=== PATIENT | female | born 1950 | race Caucasian/White ===

== ENCOUNTER 2016-11-18 05:54 | Emergency (ER) | payer BC ==
--- NOTE | 2016-11-18 06:54 | Emergency Department Record ---
History of Present Illness - General Chief complaint: Female Urogenital Problem Stated complaint: BALLARD PROBLEMS Time Seen by Provider: 11/18/16 06:48 Source: Patient Mode of Arrival: Ambulatory Limitations: No limitations - History of Present Illness Initial comments: pt had nephrostomy tube placed yesterday by dr buitrago. pt is here now because she is unclear how to take care of it. MD Complaint: Other Radiation: L flank Associated Symptoms: Denies other symptoms - Related Data Allergies Allergy/AdvReac Type Severity Reaction Status Date / Time cefaclor [From Ceclor] Allergy HIVES Verified 10/22/14 08:28 penicillin V Allergy HIVES Verified 10/22/14 08:28 sulfamethoxazole Allergy PT UNSURE Verified 10/22/14 08:28 [From Bactrim] OF REACTION trimethoprim [From Bactrim] Allergy PT UNSURE Verified 10/22/14 08:28 OF REACTION aspirin AdvReac PT UNSURE Verified 10/22/14 08:28 OF REACTION codeine AdvReac VOMITING Verified 02/21/15 14:17 doxycycline AdvReac VOMITING Verified 02/21/15 14:17 tioconazole AdvReac ITCHING Verified 02/21/15 14:17 [From Monistat 1 (tioconazole)] Travel Screening - Travel/Exposure Within Last 30 Days Have you traveled within the last 30 days?: No - Travel/Exposure Within Last Year Have you traveled outside the [place] in the last year?: No Review of Systems Reviewed: No additional complaints except as noted below Constitutional: Reports: As per HPI. Denies: Chills, Fever, Malaise, Night sweats, Weakness, Weight change Eyes: Reports: As per HPI. Denies: Eye discharge, Eye pain, Photophobia, Vision change ENT: Reports: As per HPI. Denies: Congestion, Dental pain, Ear pain, Epistaxis , Hearing loss, Throat pain Respiratory: Reports: As per HPI. Denies: Cough, Dyspnea, Hemoptysis, Stridor, Wheezes Cardiovascular: Reports: As per HPI. Denies: Arrhythmia, Chest pain, Dyspnea on exertion, Edema, Murmurs, Orthopnea, Palpitations, Paroxysmal nocturnal dyspnea, Rheumatic Fever, Syncope Endocrine: Reports: As per HPI. Denies: Fatigue, Heat or cold intolerance, Polydipsia, Polyuria Gastrointestinal: Reports: As per HPI. Denies: Abdominal pain, Constipation, Diarrhea, Hematemesis, Hematochezia, Melena, Nausea, Vomiting Genitourinary: Reports: As per HPI. Denies: Abnormal menses, Discharge, Dyspareunia, Dysuria, Frequency, Hematuria, Incontinence, Retention, Urgency Musculoskeletal: Reports: As per HPI. Denies: Arthralgia, Back pain, Gout, Joint swelling, Myalgia, Neck pain Skin: Reports: As per HPI. Denies: Bruising, Change in color, Change in hair/ nails, Lesions, Pruritus, Rash Neurological: Reports: As per HPI. Denies: Abnormal gait, Confusion, Headache, Numbness, Paresthesias, Seizure, Tingling, Tremors, Vertigo, Weakness Psychiatric: Reports: As per HPI. Denies: Anxiety, Auditory hallucinations, Depression, Homicidal thoughts, Suicidal thoughts, Visual hallucinations Hematological/Lymphatic: Reports: As per HPI. Denies: Anemia, Blood Clots, Easy bleeding, Easy bruising, Swollen glands Past Medical History - SOCIAL HISTORY Smoking Status: Never smoker Alcohol Use: None Drug Use: None - RESPIRATORY Hx Respiratory Disorders: Yes Hx Bronchitis: Yes - CARDIOVASCULAR Hx Cardio Disorders: No - NEURO Hx Neuro Disorders: No - GI Hx GI Disorders: No - Hx Genitourinary Disorders: Yes Hx Kidney Stones: Yes Hx Renal Disease: Yes - ENDOCRINE Hx Endocrine Disorders: Yes Hx Diabetes: Yes ("Pre-diabetic") - MUSCULOSKELETAL Hx Musculoskeletal Disorders: No - PSYCH Hx Psych Problems: No - HEMATOLOGY/ONCOLOGY Hx Hematology/Oncology Disorders: No Family Medical History Any Significant Family History?: Yes Family Hx Comment (NOT TO BE USED IN PLACE OF ITEMS BELOW): Mother had MS and was "post-polio" Hx Cancer: Father, Mother Physical Exam - General General Appearance: Alert, Oriented x3, Cooperative, No acute distress - Head Head exam: Normal inspection - Eye Eye exam: Normal appearance, PERRL, EOMI Pupils: Normal accommodation - ENT ENT exam: Normal exam, Mucous membranes moist, Normal external ear exam, Normal orophraynx Ear exam: Normal external inspection. negative: External canal tenderness Nasal Exam: Normal inspection. negative: Discharge, Sinus tenderness Mouth exam: Normal external inspection, Tongue normal Teeth exam: Normal inspection. negative: Dental caries Throat exam: Normal inspection. negative: Tonsillar erythema, Tonsillar exudate - Neck Neck exam: Normal inspection, Full ROM. negative: Tenderness - Respiratory Respiratory exam: Normal lung sounds bilaterally. negative: Respiratory distress - Cardiovascular Cardiovascular Exam: Regular rate, Normal rhythm, Normal heart sounds - GI/Abdominal GI/Abdominal exam: Soft, Normal bowel sounds. negative: Tenderness - Rectal Rectal exam: Deferred - exam: Deferred - Extremities Extremities exam: Normal inspection, Full ROM, Normal capillary refill. negative: Tenderness - Back Back exam: Reports: Normal inspection, Full ROM, Other (nephrostomy tube in place). Denies: Muscle spasm, Rash noted, Tenderness - Neurological Neurological exam: Alert, CN II-XII intact, Normal gait, Oriented X3 - Psychiatric Psychiatric exam: Normal affect, Normal mood - Skin Skin exam: Dry, Intact, Normal color, Warm Course Vital Signs 11/18/16 11/18/16 06:04 06:45 Temperature 97.4 F L 98.1 F Pulse Rate [ 78 80 Pulse Ox Probe] Respiratory 18 18 Rate Blood Pressure 161/87 138/76 [Right Arm] Pulse Ox 96 97 - Reevaluation(s) Reevaluation #1: 11/18/16 06:51 pt and educated re nephrostomy tube Disposition Disposition: Discharge Clinical Impression: Nephrostomy complication Disposition: Home, Self-Care Condition: (1) Good Instructions: Nephrostomy Tube Care (ED) Additional Instructions: follow up with dr buitrago. return sooner if worse Forms: Patient Portal Access
== END 2016-11-18 07:01 | disposition home or self-care (01) ==
LOC: ER 05:54
DX: N99.528 Other complication of incontinent external stoma of urinary tract (principal); Z87.442 Personal history of urinary calculi; Z98.890 Other specified postprocedural states
CPT/HCPCS: 99282

== ENCOUNTER 2017-11-27 12:41 | Emergency (ER) | payer BC ==
[2017-11-27] MEDS ORDERED: 0.9 % SODIUM CHLORIDE 1,000 ML BAG IV ONE (13:09)
[2017-11-27] MEDS ORDERED: KETOROLAC 30 MG/ML VIAL IVP ONE (13:10)
[2017-11-27 13:13] LABS: URINE APPEARANCE CLEAR; URINE BILIRUBIN NEGATIVE (NEGATIVE); URINE BLOOD LARGE (NEGATIVE); URINE COLOR YELLOW; URINE GLUCOSE (UA) NEGATIVE (NEGATIVE); URINE KETONE NEGATIVE (NEGATIVE); URINE LEUKOCYTE ESTERASE LARGE (NEGATIVE); URINE NITRITE NEGATIVE (NEGATIVE); URINE UROBILINOGEN 0.2 E.U./dL (0.20 - 1.00)
[2017-11-27 13:35] LABS: URINE BACTERIA FEW; URINE RBC >50 (NONE SEEN); URINE WBC >50 (0-2/hpf)
--- NOTE | 2017-11-27 13:40 | Emergency Department Record ---
History of Present Illness - General Chief complaint: Flank Pain Stated complaint: KIDNEY STONE Time Seen by Provider: 11/27/17 13:03 Source: Patient Mode of Arrival: Ambulatory Limitations: No limitations - History of Present Illness Initial comments: pt is having l flank pain and has a hx of stones. Complaint: Other (l flank pain) Onset/Timin -: Week(s) Severity scale (1-10): 4 Quality: Aching, Cramping Improves with: None Worsens with: None Patient : No - Related Data Home Medications Medication Instructions Recorded Confirmed Last Taken Cholecalciferol (Vitamin D3) 2,000 unit PO DAILY 11/27/17 11/27/17 11/27/17 [Vitamin D3] Sertraline HCl [Zoloft] 50 mg PO DAILY 11/27/17 11/27/17 11/27/17 Previous Rx's Medication Instructions Recorded Ciprofloxacin HCl [Cipro] 500 mg PO Q12HR #14 tablet 11/27/17 Allergies Allergy/AdvReac Type Severity Reaction Status Date / Time cefaclor [From Ceclor] Allergy HIVES Verified 11/27/17 12:53 penicillin V Allergy HIVES Verified 11/27/17 12:53 sulfamethoxazole Allergy PT UNSURE Verified 11/27/17 12:53 [From Bactrim] OF REACTION trimethoprim [From Bactrim] Allergy PT UNSURE Verified 11/27/17 12:53 OF REACTION aspirin AdvReac PT UNSURE Verified 11/27/17 12:53 OF REACTION codeine AdvReac VOMITING Verified 11/27/17 12:53 doxycycline AdvReac VOMITING Verified 11/27/17 12:53 tioconazole AdvReac ITCHING Verified 11/27/17 12:53 [From Monistat 1 (tioconazole)] Travel Screening - Travel/Exposure Within Last 30 Days Have you traveled within the last 30 days?: No - Travel/Exposure Within Last Year Have you traveled outside the [place] in the last year?: No - Additonal Travel Details Have you been exposed to anyone with a communicable illness?: No Review of Systems Reviewed: No additional complaints except as noted below Constitutional: Reports: As per HPI. Denies: Chills, Fever, Malaise, Night sweats, Weakness, Weight change Eyes: Reports: As per HPI. Denies: Eye discharge, Eye pain, Photophobia, Vision change ENT: Reports: As per HPI. Denies: Congestion, Dental pain, Ear pain, Epistaxis , Hearing loss, Throat pain Respiratory: Reports: As per HPI. Denies: Cough, Dyspnea, Hemoptysis, Stridor, Wheezes Cardiovascular: Reports: As per HPI. Denies: Arrhythmia, Chest pain, Dyspnea on exertion, Edema, Murmurs, Orthopnea, Palpitations, Paroxysmal nocturnal dyspnea, Rheumatic Fever, Syncope Endocrine: Reports: As per HPI. Denies: Fatigue, Heat or cold intolerance, Polydipsia, Polyuria Gastrointestinal: Reports: As per HPI. Denies: Abdominal pain, Constipation, Diarrhea, Hematemesis, Hematochezia, Melena, Nausea, Vomiting Genitourinary: Reports: As per HPI. Denies: Abnormal menses, Discharge, Dyspareunia, Dysuria, Frequency, Hematuria, Incontinence, Retention, Urgency Musculoskeletal: Reports: As per HPI, Back pain. Denies: Arthralgia, Gout, Joint swelling, Myalgia, Neck pain Skin: Reports: As per HPI. Denies: Bruising, Change in color, Change in hair/ nails, Lesions, Pruritus, Rash Neurological: Reports: As per HPI. Denies: Abnormal gait, Confusion, Headache, Numbness, Paresthesias, Seizure, Tingling, Tremors, Vertigo, Weakness Psychiatric: Reports: As per HPI. Denies: Anxiety, Auditory hallucinations, Depression, Homicidal thoughts, Suicidal thoughts, Visual hallucinations Hematological/Lymphatic: Reports: As per HPI. Denies: Anemia, Blood Clots, Easy bleeding, Easy bruising, Swollen glands Past Medical History - SOCIAL HISTORY Smoking Status: Never smoker Alcohol Use: None Drug Use: None - RESPIRATORY Hx Respiratory Disorders: Yes Hx Bronchitis: Yes - CARDIOVASCULAR Hx Cardio Disorders: No - NEURO Hx Neuro Disorders: No - GI Hx GI Disorders: No - Hx Genitourinary Disorders: Yes Hx Kidney Stones: Yes Hx Renal Disease: Yes - ENDOCRINE Hx Endocrine Disorders: Yes Hx Diabetes: Yes ("Pre-diabetic") - MUSCULOSKELETAL Hx Musculoskeletal Disorders: No - PSYCH Hx Psych Problems: No - HEMATOLOGY/ONCOLOGY Hx Hematology/Oncology Disorders: No Family Medical History Any Significant Family History?: No Family Hx Comment (NOT TO BE USED IN PLACE OF ITEMS BELOW): Mother had MS and was "post-polio" Hx Cancer: Father, Mother Physical Exam - General General Appearance: Alert, Oriented x3, Cooperative, Mild distress - Head Head exam: Normal inspection - Eye Eye exam: Normal appearance, PERRL, EOMI Pupils: Normal accommodation - ENT ENT exam: Normal exam, Mucous membranes moist, Normal external ear exam, Normal orophraynx Ear exam: Normal external inspection. negative: External canal tenderness Nasal Exam: Normal inspection. negative: Discharge, Sinus tenderness Mouth exam: Normal external inspection, Tongue normal Teeth exam: Normal inspection. negative: Dental caries Throat exam: Normal inspection. negative: Tonsillar erythema, Tonsillar exudate - Neck Neck exam: Normal inspection, Full ROM. negative: Tenderness - Respiratory Respiratory exam: Normal lung sounds bilaterally. negative: Respiratory distress - Cardiovascular Cardiovascular Exam: Regular rate, Normal rhythm, Normal heart sounds - GI/Abdominal GI/Abdominal exam: Soft, Normal bowel sounds. negative: Tenderness - Rectal Rectal exam: Deferred - exam: Deferred - Extremities Extremities exam: Normal inspection, Full ROM, Normal capillary refill. negative: Tenderness - Back Back exam: Reports: Normal inspection, Full ROM. Denies: Muscle spasm, Rash noted, Tenderness - Neurological Neurological exam: Alert, CN II-XII intact, Normal gait, Oriented X3 - Psychiatric Psychiatric exam: Normal affect, Normal mood - Skin Skin exam: Dry, Intact, Normal color, Warm Course Vital Signs 11/27/17 12:46 Temperature 97.9 F Pulse Rate 83 Respiratory 20 Rate Blood Pressure 162/69 Pulse Ox 97 Medical Decision Making - Lab Data Result diagrams: 11/27/17 13:45 11/27/17 13:45 Lab Results 11/27/17 Range/Units 13:07 Urine Color Yellow Urine Appearance Clear Urine pH 6.0 (5.0-8.0) Ur Specific [place] 1.020 (1.002-1.030) Urine Protein 30 mg/dl H (NEGATIVE) Urine Glucose (UA) Negative (NEGATIVE) Urine Ketones Negative (NEGATIVE) Urine Blood Large H (NEGATIVE) Urine Nitrite Negative (NEGATIVE) Urine Bilirubin Negative (NEGATIVE) Urine Urobilinogen 0.2 (0.20 - 1.00) E.U./dL Ur Leukocyte Esterase Large H (NEGATIVE) Urine RBC >50 (NONE SEEN) Urine WBC >50 (0-2/hpf) Ur Epithelial Cells 3 - 6 (FEW) Urine Bacteria Few Disposition Disposition: Discharge Clinical Impression: Pyelonephritis, Lymphadenopathy Disposition: Home, Self-Care Condition: (1) Good Instructions: Flank Pain (ED), Kidney Infection (ED) Additional Instructions: follow up with family doctor. return sooner if worse. push fluids Prescriptions: Ciprofloxacin HCl [Cipro] 500 mg PO Q12HR #14 tablet Forms: Patient Portal Access Quality - Quality Measures Quality Measures: N/A - Blood Pressure Screening Does Patient Have Any of the Following: No Blood Pressure Classification: Hypertensive Reading Systolic Measurement: 162 Diastolic Measurement: 69 Screening for High Blood Pressure: < First Hypertensive BP, F/U Documented > [ G8950] First Hypertensive Follow-up Interventions: Follow-up with rescreen GT 1 day and LT 4 weeks.
[2017-11-27 13:56] LABS: BASO % 0.7 % (0-6); EOS % 1.9 % (0-6); GRAN % 73.9 % (47-80); HEMATOCRIT 38.6 % (35.0-47.0); HEMOGLOBIN 12.3 gm/dl (11.6-16.0); LYMPH % 15.2 % (16-45); MEAN CELL VOLUME 95.3 fl (81-97); MEAN CORPUSCULAR HEMOGLOBIN 30.4 pg (27-33); MEAN CORPUSCULAR HGB CONC 31.9 g/dl (32-36); MEAN PLATELET VOLUME 10.1 fl (7.4-10.4); MONO % 8.3 % (0-9); PLATELET COUNT 226 K/uL (130-400); RED BLOOD COUNT 4.05 M/uL (3.80-5.40); RED CELL DISTRIBUTION WIDTH 12.6 % (11.5-14.5); WHITE BLOOD COUNT W/O DIFF 5.9 K/uL (4.2-12.2)
[2017-11-27 14:15] LABS: BLOOD UREA NITROGEN 14 mg/dL (8-23); CREATININE 0.8 mg/dL (0.5-0.9); EST GLOMERULAR FILTRATION RATE > 60 mL/min; GLUCOSE,RANDOM 105 mg/dL (74-109)
[2017-11-27] MEDS ORDERED: CIPROFLOXACIN HCL 500 MG TABLET PO ONE (16:12)
--- NOTE | 2017-11-27 16:26 | Emergency Department Record ---
History of Present Illness - General Chief complaint: Flank Pain Stated complaint: KIDNEY STONE Time Seen by Provider: 11/27/17 13:03 Source: Patient Mode of Arrival: Ambulatory Limitations: No limitations - History of Present Illness Onset/Timin -: Week(s) Severity scale (1-10): 4 Quality: Aching, Cramping Improves with: None Worsens with: None Patient : No - Related Data Home Medications Medication Instructions Recorded Confirmed Last Taken Cholecalciferol (Vitamin D3) 2,000 unit PO DAILY 11/27/17 11/27/17 11/27/17 [Vitamin D3] Sertraline HCl [Zoloft] 50 mg PO DAILY 11/27/17 11/27/17 11/27/17 Previous Rx's Medication Instructions Recorded Ciprofloxacin HCl [Cipro] 500 mg PO Q12HR #14 tablet 11/27/17 Allergies Allergy/AdvReac Type Severity Reaction Status Date / Time cefaclor [From Ceclor] Allergy HIVES Verified 11/27/17 12:53 penicillin V Allergy HIVES Verified 11/27/17 12:53 sulfamethoxazole Allergy PT UNSURE Verified 11/27/17 12:53 [From Bactrim] OF REACTION trimethoprim [From Bactrim] Allergy PT UNSURE Verified 11/27/17 12:53 OF REACTION aspirin AdvReac PT UNSURE Verified 11/27/17 12:53 OF REACTION codeine AdvReac VOMITING Verified 11/27/17 12:53 doxycycline AdvReac VOMITING Verified 11/27/17 12:53 tioconazole AdvReac ITCHING Verified 11/27/17 12:53 [From Monistat 1 (tioconazole)] Travel Screening - Travel/Exposure Within Last 30 Days Have you traveled within the last 30 days?: No - Travel/Exposure Within Last Year Have you traveled outside the [place] in the last year?: No - Additonal Travel Details Have you been exposed to anyone with a communicable illness?: No Review of Systems Constitutional: Reports: As per HPI. Denies: Chills, Fever, Malaise, Night sweats, Weakness, Weight change Eyes: Reports: As per HPI. Denies: Eye discharge, Eye pain, Photophobia, Vision change ENT: Reports: As per HPI. Denies: Congestion, Dental pain, Ear pain, Epistaxis , Hearing loss, Throat pain Respiratory: Reports: As per HPI. Denies: Cough, Dyspnea, Hemoptysis, Stridor, Wheezes Cardiovascular: Reports: As per HPI. Denies: Arrhythmia, Chest pain, Dyspnea on exertion, Edema, Murmurs, Orthopnea, Palpitations, Paroxysmal nocturnal dyspnea, Rheumatic Fever, Syncope Endocrine: Reports: As per HPI. Denies: Fatigue, Heat or cold intolerance, Polydipsia, Polyuria Gastrointestinal: Reports: As per HPI. Denies: Abdominal pain, Constipation, Diarrhea, Hematemesis, Hematochezia, Melena, Nausea, Vomiting Genitourinary: Reports: As per HPI. Denies: Abnormal menses, Discharge, Dyspareunia, Dysuria, Frequency, Hematuria, Incontinence, Retention, Urgency Musculoskeletal: Reports: As per HPI, Back pain. Denies: Arthralgia, Gout, Joint swelling, Myalgia, Neck pain Skin: Reports: As per HPI. Denies: Bruising, Change in color, Change in hair/ nails, Lesions, Pruritus, Rash Neurological: Reports: As per HPI. Denies: Abnormal gait, Confusion, Headache, Numbness, Paresthesias, Seizure, Tingling, Tremors, Vertigo, Weakness Psychiatric: Reports: As per HPI. Denies: Anxiety, Auditory hallucinations, Depression, Homicidal thoughts, Suicidal thoughts, Visual hallucinations Hematological/Lymphatic: Reports: As per HPI. Denies: Anemia, Blood Clots, Easy bleeding, Easy bruising, Swollen glands Past Medical History - SOCIAL HISTORY Smoking Status: Never smoker Alcohol Use: None Drug Use: None - RESPIRATORY Hx Respiratory Disorders: Yes Hx Bronchitis: Yes - CARDIOVASCULAR Hx Cardio Disorders: No - NEURO Hx Neuro Disorders: No - GI Hx GI Disorders: No - Hx Genitourinary Disorders: Yes Hx Kidney Stones: Yes Hx Renal Disease: Yes - ENDOCRINE Hx Endocrine Disorders: Yes Hx Diabetes: Yes ("Pre-diabetic") - MUSCULOSKELETAL Hx Musculoskeletal Disorders: No - PSYCH Hx Psych Problems: No - HEMATOLOGY/ONCOLOGY Hx Hematology/Oncology Disorders: No Family Medical History Any Significant Family History?: No Family Hx Comment (NOT TO BE USED IN PLACE OF ITEMS BELOW): Mother had MS and was "post-polio" Hx Cancer: Father, Mother Physical Exam - General Limitations: No limitations Course Vital Signs 11/27/17 11/27/17 12:46 15:30 Temperature 97.9 F Pulse Rate 83 Pulse Rate [ 75 Pulse Ox Probe] Respiratory 20 Rate Blood Pressure 162/69 Blood Pressure 150/73 [Left Arm] Pulse Ox 97 100 Medical Decision Making - Lab Data Result diagrams: 11/27/17 13:45 11/27/17 13:45 Lab Results 11/27/17 11/27/17 11/27/17 Range/Units 13:07 13:45 13:45 WBC 5.9 (4.2-12.2) K/uL RBC 4.05 (3.80-5.40) M/uL Hgb 12.3 (11.6-16.0) gm/dl Hct 38.6 (35.0-47.0) % MCV 95.3 (81-97) fl MCH 30.4 (27-33) pg MCHC 31.9 L (32-36) g/dl RDW 12.6 (11.5-14.5) % Plt Count 226 (130-400) K/uL MPV 10.1 (7.4-10.4) fl Gran % 73.9 (47-80) % Lymphocytes % 15.2 L (16-45) % Monocytes % 8.3 (0-9) % Eosinophils % 1.9 (0-6) % Basophils % 0.7 (0-6) % Sodium 142 (136-145) mmol/L Potassium 3.7 (3.4-4.5) mmol/L Chloride 107 (98-107) mmol/L Carbon Dioxide 27.0 (22-29) mmol/L Anion Gap 8.0 (7-16) BUN 14 (8-23) mg/dL Creatinine 0.8 (0.5-0.9) mg/dL Estimated GFR > 60 mL/min Random Glucose 105 (74-109) mg/dL Calcium 8.9 (8.8-10.2) mg/dL Urine Color Yellow Urine Appearance Clear Urine pH 6.0 (5.0-8.0) Ur Specific [place] 1.020 (1.002-1.030) Urine Protein 30 mg/dl H (NEGATIVE) Urine Glucose (UA) Negative (NEGATIVE) Urine Ketones Negative (NEGATIVE) Urine Blood Large H (NEGATIVE) Urine Nitrite Negative (NEGATIVE) Urine Bilirubin Negative (NEGATIVE) Urine Urobilinogen 0.2 (0.20 - 1.00) E.U./dL Ur Leukocyte Esterase Large H (NEGATIVE) Urine RBC >50 (NONE SEEN) Urine WBC >50 (0-2/hpf) Ur Epithelial Cells 3 - 6 (FEW) Urine Bacteria Few Disposition Clinical Impression: Pyelonephritis, Lymphadenopathy Disposition: Home, Self-Care Condition: (1) Good Instructions: Kidney Infection (ED), Flank Pain (ED) Additional Instructions: follow up with family doctor. return sooner if worse. push fluids. have pet scan of abd/pelvis Prescriptions: Ciprofloxacin HCl [Cipro] 500 mg PO Q12HR #14 tablet Forms: Patient Portal Access Quality - Quality Measures Quality Measures: N/A - Blood Pressure Screening Does Patient Have Any of the Following: No Blood Pressure Classification: Hypertensive Reading Systolic Measurement: 162 Diastolic Measurement: 69 Screening for High Blood Pressure: < First Hypertensive BP, F/U Documented > [ G8950] First Hypertensive Follow-up Interventions: Follow-up with rescreen GT 1 day and LT 4 weeks.
--- NOTE | 2017-11-28 13:19 | CT SCAN REPORT ---
EXAM: CT SCAN OF THE ABDOMEN AND PELVIS HISTORY: PATIENT HAS LEFT FLANK PAIN. TECHNIQUE: Serial axial CT scan of the abdomen and pelvis was performed at 2.5 mm intervals from the dome of the diaphragm down to the pubic symphysis without the use of intravenous or oral contrast. Comparison: CT scan of the abdomen and pelvis dated 08/21/12 is provided. FINDINGS: The lung windows of the lung bases demonstrate a nonspecific pleural based 6 mm nodule within the medial right lower lobe. There is a nonspecific 7.9 mm nodule within the left lateral lower lobe. Neoplastic etiologies cannot be excluded. PET scan can be obtained for further evaluation. The visualized heart size and contour is within normal limits. The liver, spleen, adrenal glands, and pancreas are unremarkable. The gallbladder demonstrates gallstones without CT evidence of cholecystitis. There is no CT evidence of hydronephrosis or hydroureter. A nonobstructive 1.5 mm calculus is noted within the mid pole of the right kidney. The contour and caliber of the noncontrasted abdominal aorta is within normal limits. There is no CT evidence of periaortic lymphadenopathy, however, there is a 1.5 cm in short axis diameter lymph node identified within the left hemipelvis adjacent to the left external iliac vein. The bowel gas pattern is nonspecific and nonobstructive. There is no CT evidence of free intraperitoneal air. The bone windows demonstrate no CT evidence of fracture or dislocation of the visualized osseeous structures. IMPRESSION: 1. PROMINENT LYMPH NODE IN THE LEFT HEMIPELVIS ADJACENT TO THE LEFT EXTERNAL ILIAC VEIN. NEOPLASTIC ETIOLOGY CANNOT BE EXCLUDED. IF THERE IS FURTHER CLINICAL CONCERN, THEN A PET/CT SCAN CAN BE OBTAINED FOR FURTHER EVALUATION. 2. THERE IS A NONSPECIFIC 7.9 MM NODULE WITHIN THE LEFT LATERAL LOWER LOBE. NEOPLASTIC ETIOLOGIES CANNOT BE EXCLUDED. PET SCAN CAN BE OBTAINED FOR FURTHER EVALUATION. 3. A NONOBSTRUCTIVE 1.5 MM CALCULUS IS NOTED WITHIN THE MID POLE OF THE RIGHT KIDNEY. JOB NUMBER: [id number] [facility]
== END 2017-11-27 16:32 | disposition home or self-care (01) ==
LOC: ER 12:41
DX: N10 Acute pyelonephritis (principal); R59.1 Generalized enlarged lymph nodes; R73.03 Prediabetes; Z87.442 Personal history of urinary calculi
CPT/HCPCS: 74176; 80048; 81001; 85025; 96374; 99284; J7030

== ENCOUNTER 2018-06-17 21:31 | Emergency (ER) | payer BC ==
[2018-06-17 22:21] LABS: URINE APPEARANCE SL CLOUDY; URINE BILIRUBIN NEGATIVE (NEGATIVE); URINE BLOOD LARGE (NEGATIVE); URINE COLOR YELLOW; URINE GLUCOSE (UA) NEGATIVE (NEGATIVE); URINE KETONE NEGATIVE (NEGATIVE); URINE LEUKOCYTE ESTERASE SMALL (NEGATIVE); URINE NITRITE NEGATIVE (NEGATIVE); URINE UROBILINOGEN 0.2 E.U./dL (0.20 - 1.00)
[2018-06-17 22:29] LABS: URINE BACTERIA 1+; URINE EPITHELIAL CELLS 0 - 2 (FEW); URINE WBC 21 - 35 (0-2/hpf)
[2018-06-17 23:04] LABS: HEMATOCRIT 27.2 % (35.0-47.0); HEMOGLOBIN 8.3 gm/dl (11.6-16.0); MEAN CELL VOLUME 94.4 fl (81-97); MEAN CORPUSCULAR HEMOGLOBIN 28.8 pg (27-33); MEAN CORPUSCULAR HGB CONC 30.5 g/dl (32-36); MEAN PLATELET VOLUME 9.3 fl (7.4-10.4); PLATELET COUNT 259 K/uL (130-400); RED BLOOD COUNT 2.88 M/uL (3.80-5.40); RED CELL DISTRIBUTION WIDTH 15.7 % (11.5-14.5); WHITE BLOOD COUNT W/O DIFF 3.1 K/uL (4.2-12.2)
[2018-06-17 23:16] LABS: BLOOD UREA NITROGEN 20 mg/dL (8-23)
[2018-06-17 23:17] LABS: BILIRUBIN,TOTAL < 0.20 mg/dL (0.2-1.0); CREATININE 0.7 mg/dL (0.5-0.9); EST GLOMERULAR FILTRATION RATE > 60 mL/min; TOTAL PROTEIN 7.1 g/dL (6.6-8.7)
[2018-06-17 23:19] LABS: GLUCOSE,RANDOM 126 mg/dL (74-109)
[2018-06-17 23:22] LABS: ALBUMIN 3.6 g/dL (4.0-5.0); ALKALINE PHOSPHATASE 97 U/L (35-104); ALT/SGPT 16 U/L (<33); AST/SGOT 15 U/L (10.0-35.0)
[2018-06-17 23:31] LABS: ANISOCYTOSIS 1+; PLATELET ESTIMATE NORMAL (NORMAL)
--- NOTE | 2018-06-17 23:46 | Emergency Department Record ---
History of Present Illness - General Chief Complaint: Fever Stated Complaint: CHEMO PT/FEVER Time Seen by Provider: 06/17/18 22:20 Source: Patient Mode of Arrival: Ambulatory Limitations: No limitations - History of Present Illness Initial Comments: pt is on chemo and started running a temp the last day up to 101. her oncologist said for her to come in. she has endometrial ca. Complaint: Fever, Weakness Onset/Timin -: Days(s) Maximum Temperature: 101 F Temperature Source: Oral Context: On chemotherapy Associated Symptoms: Cough Treatments Prior to Arrival: Acetaminophen Treatment Prior to Arrival Comment:: tylenol es 1 tab at 730pm - Related Data Home Medications Medication Instructions Recorded Confirmed Last Taken Acetaminophen [Tylenol Extra 1 - 2 tab PO Q6H PRN 06/17/18 06/17/18 06/17/18 Strength] Enoxaparin Sodium [Lovenox] 40 mg SQ DAILY 06/17/18 06/17/18 Unknown Lorazepam [Ativan] 1 - 2 tab PO Q6H PRN 06/17/18 06/17/18 Unknown Ondansetron HCl [Zofran] 8 mg PO Q8HR PRN 06/17/18 06/17/18 Unknown Prochlorperazine Maleate 10 mg PO DAILY PRN 06/17/18 06/17/18 Unknown [Compazine] Previous Rx's Medication Instructions Recorded Ciprofloxacin HCl [Cipro] 500 mg PO Q12HR #14 tablet 06/17/18 Allergies Allergy/AdvReac Type Severity Reaction Status Date / Time cefaclor [From Ceclor] Allergy HIVES Verified 11/27/17 12:53 pegfilgrastim [From Neulasta] Allergy bone pain Verified 06/17/18 22:37 penicillin V Allergy HIVES Verified 11/27/17 12:53 sulfamethoxazole Allergy PT UNSURE Verified 11/27/17 12:53 [From Bactrim] OF REACTION trimethoprim [From Bactrim] Allergy PT UNSURE Verified 11/27/17 12:53 OF REACTION aspirin AdvReac PT UNSURE Verified 11/27/17 12:53 OF REACTION codeine AdvReac VOMITING Verified 11/27/17 12:53 doxycycline AdvReac VOMITING Verified 11/27/17 12:53 tioconazole AdvReac ITCHING Verified 11/27/17 12:53 [From Monistat 1 (tioconazole)] picholi oil AdvReac upper Uncoded 06/17/18 22:37 respiratory problems Travel Screening - Travel/Exposure Within Last 30 Days Have you traveled within the last 30 days?: No - Travel Symptoms Symptom Screening: None Review of Systems Reviewed: No additional complaints except as noted below Constitutional: Reports: As per HPI. Denies: Chills, Fever, Malaise, Night sweats, Weakness, Weight change Eyes: Reports: As per HPI. Denies: Eye discharge, Eye pain, Photophobia, Vision change ENT: Reports: As per HPI. Denies: Congestion, Dental pain, Ear pain, Epistaxis , Hearing loss, Throat pain Respiratory: Reports: As per HPI. Denies: Cough, Dyspnea, Hemoptysis, Stridor, Wheezes Cardiovascular: Reports: As per HPI. Denies: Arrhythmia, Chest pain, Dyspnea on exertion, Edema, Murmurs, Orthopnea, Palpitations, Paroxysmal nocturnal dyspnea, Rheumatic Fever, Syncope Endocrine: Reports: As per HPI. Denies: Fatigue, Heat or cold intolerance, Polydipsia, Polyuria Gastrointestinal: Reports: As per HPI. Denies: Abdominal pain, Constipation, Diarrhea, Hematemesis, Hematochezia, Melena, Nausea, Vomiting Genitourinary: Reports: As per HPI. Denies: Abnormal menses, Discharge, Dyspareunia, Dysuria, Frequency, Hematuria, Incontinence, Retention, Urgency Musculoskeletal: Reports: As per HPI. Denies: Arthralgia, Back pain, Gout, Joint swelling, Myalgia, Neck pain Skin: Reports: As per HPI. Denies: Bruising, Change in color, Change in hair/ nails, Lesions, Pruritus, Rash Neurological: Reports: As per HPI. Denies: Abnormal gait, Confusion, Headache, Numbness, Paresthesias, Seizure, Tingling, Tremors, Vertigo, Weakness Psychiatric: Reports: As per HPI. Denies: Anxiety, Auditory hallucinations, Depression, Homicidal thoughts, Suicidal thoughts, Visual hallucinations Hematological/Lymphatic: Reports: As per HPI. Denies: Anemia, Blood Clots, Easy bleeding, Easy bruising, Swollen glands Past Medical History - SOCIAL HISTORY Smoking Status: Never smoker - RESPIRATORY Hx Respiratory Disorders: Yes Hx Bronchitis: Yes Comment:: allergies - CARDIOVASCULAR Hx Cardio Disorders: No - NEURO Hx Neuro Disorders: No - GI Hx GI Disorders: No - Hx Genitourinary Disorders: Yes Hx Kidney Stones: Yes Hx Renal Disease: Yes - ENDOCRINE Hx Endocrine Disorders: Yes Hx Diabetes: Yes ("Pre-diabetic") - MUSCULOSKELETAL Hx Musculoskeletal Disorders: No - PSYCH Hx Psych Problems: Yes Hx Depression: Yes - HEMATOLOGY/ONCOLOGY Hx Hematology/Oncology Disorders: Yes Hx Cancer: Yes (endometrial) Hx Chemotherapy: Yes Hx Radiation Therapy: No Family Medical History Any Significant Family History?: Yes Family Hx Comment (NOT TO BE USED IN PLACE OF ITEMS BELOW): Mother had MS and was "post-polio" Hx Cancer: Father, Mother Physical Exam - General General Appearance: Alert, Oriented x3, Cooperative, Mild distress - Head Head exam: Normal inspection - Eye Eye exam: Normal appearance, PERRL, EOMI Pupils: Normal accommodation - ENT ENT exam: Normal exam, Mucous membranes moist, Normal external ear exam, Normal orophraynx, TM's normal bilaterally Ear exam: Normal external inspection. negative: External canal tenderness Nasal Exam: Normal inspection. negative: Discharge, Sinus tenderness Mouth exam: Normal external inspection, Tongue normal Teeth exam: Normal inspection. negative: Dental caries Throat exam: Normal inspection. negative: Tonsillar erythema, Tonsillar exudate - Neck Neck exam: Normal inspection, Full ROM. negative: Tenderness - Respiratory Respiratory exam: Normal lung sounds bilaterally. negative: Respiratory distress - Cardiovascular Cardiovascular Exam: Normal rhythm, Normal heart sounds, Tachycardia - GI/Abdominal GI/Abdominal exam: Soft, Normal bowel sounds. negative: Tenderness - Rectal Rectal exam: Deferred - exam: Deferred - Extremities Extremities exam: Normal inspection, Full ROM, Normal capillary refill. negative: Tenderness - Back Back exam: Reports: Normal inspection, Full ROM. Denies: Muscle spasm, Rash noted, Tenderness - Neurological Neurological exam: Alert, CN II-XII intact, Normal gait, Oriented X3 - Psychiatric Psychiatric exam: Normal affect, Normal mood - Skin Skin exam: Dry, Intact, Normal color, Warm Course Vital Signs 06/17/18 21:50 Temperature 99.8 F H Pulse Rate [ 107 H Pulse Ox Probe] Respiratory 18 Rate Blood Pressure 153/98 [Left Arm] Pulse Ox 97 - Reevaluation(s) Reevaluation #1: 06/17/18 23:54 d/w dr clark Medical Decision Making - Lab Data Result diagrams: 06/17/18 22:53 06/17/18 22:53 Lab Results 06/17/18 06/17/18 06/17/18 Range/Units 22:53 22:53 Unknown WBC 3.1 L (4.2-12.2) K/uL RBC 2.88 L (3.80-5.40) M/uL Hgb 8.3 L (11.6-16.0) gm/dl Hct 27.2 L (35.0-47.0) % MCV 94.4 (81-97) fl MCH 28.8 (27-33) pg MCHC 30.5 L (32-36) g/dl RDW 15.7 H (11.5-14.5) % Plt Count 259 (130-400) K/uL MPV 9.3 (7.4-10.4) fl Neutrophils % 68.0 (47-80) % Band Neutrophils % 1.0 (0-5) % Eosinophils % Not Reportable Basophils % Not Reportable Lymphocytes 16.0 (16-45) % Monocytes 15.0 H (0-9) % Platelet Estimate Normal (NORMAL) Anisocytosis 1+ Sodium 140 (136-145) mmol/L Potassium 3.9 (3.4-4.5) mmol/L Chloride 101 (98-107) mmol/L Carbon Dioxide 23.0 (22-29) mmol/L Anion Gap 16.0 (7-16) BUN 20 (8-23) mg/dL Creatinine 0.7 (0.5-0.9) mg/dL Estimated GFR > 60 mL/min Random Glucose 126 H (74-109) mg/dL Calcium 9.1 (8.8-10.2) mg/dL Total Bilirubin < 0.20 L (0.2-1.0) mg/dL AST 15 (10.0-35.0) U/L ALT 16 (<33) U/L Alkaline Phosphatase 97 (35-104) U/L Total Protein 7.1 (6.6-8.7) g/dL Albumin 3.6 L (4.0-5.0) g/dL Globulin 3.5 (1.4-4.8) gm/dL Albumin/Globulin Ratio 1.0 L (1.1-1.8) Urine Color Yellow Urine Appearance Sl cloudy Urine pH 5.5 (5.0-8.0) Ur Specific [place] 1.025 (1.002-1.030) Urine Protein 100 mg/dl H (NEGATIVE) Urine Glucose (UA) Negative (NEGATIVE) Urine Ketones Negative (NEGATIVE) Urine Blood Large H (NEGATIVE) Urine Nitrite Negative (NEGATIVE) Urine Bilirubin Negative (NEGATIVE) Urine Urobilinogen 0.2 (0.20 - 1.00) E.U./dL Ur Leukocyte Esterase Small H (NEGATIVE) Urine RBC 10 - 15 (NONE SEEN) Urine WBC 21 - 35 (0-2/hpf) Ur Epithelial Cells 0 - 2 (FEW) Urine Bacteria 1+ Disposition Disposition: Discharge Clinical Impression: Antineoplastic chemotherapy induced pancytopenia UTI (urinary tract infection) Qualifiers: Urinary tract infection type: acute cystitis Hematuria presence: without hematuria Qualified Code(s): N30.00 - Acute cystitis without hematuria Disposition: Home, Self-Care Condition: (1) Good Instructions: Fever in Adults (ED), Urinary Tract Infection in Women (ED) Additional Instructions: follow up with oncologist. return sooner if worse. push fluids. avoid zofran while taking cipro. Prescriptions: Ciprofloxacin HCl [Cipro] 500 mg PO Q12HR #14 tablet Forms: Patient Portal Access Quality - Quality Measures Quality Measures: N/A - Blood Pressure Screening Does Patient Have Any of the Following: No Blood Pressure Classification: Hypertensive Reading Systolic Measurement: 153 Diastolic Measurement: 98 Screening for High Blood Pressure: < First Hypertensive BP, F/U Documented > [ G8950] First Hypertensive Follow-up Interventions: Follow-up with rescreen GT 1 day and LT 4 weeks.
[2018-06-17] MEDS ORDERED: CIPROFLOXACIN HCL 500 MG TABLET PO ONE (23:53)
--- NOTE | 2018-06-20 13:12 | RADIOLOGY REPORT ---
EXAM: CHEST, TWO VIEWS HISTORY: HISTORY OF LUNG CANCER AND LYMPHOMA, FEVER AND DRY COUGH FOR TWO DAYS. TECHNIQUE: PA and lateral views of the chest were obtained. Comparison: CT of the abdomen and pelvis 11/27/17. FINDINGS: The cardiac silhouette is within normal size limits. Calcified mediastinal and hilar lymph nodes are present. Right sided chest port with catheter tip near the cavoatrial junction. Small nodular density in the projection of the lateral left lung base, otherwise no definite focal pulmonary opacities. No pleural fluid collection. No pneumothorax. IMPRESSION: SMALL NODULAR OPACITY IN THE LATERAL LEFT LUNG BASE MAY CORRESPOND WITH NODULE SEEN ON 11/27/17 CT OF THE ABDOMEN AND PELVIS, OTHERWISE NO DEFINITE ACUTE OR FOCAL LUNG FINDINGS. JOB NUMBER: [id number] MTDD
== END 2018-06-18 00:20 | disposition home or self-care (01) ==
LOC: ER 21:31
DX: D61.810 Antineoplastic chemotherapy induced pancytopenia (principal); T45.1X5A Adverse effect of antineoplastic and immunosuppressive drugs, initial encounter; C54.1 Malignant neoplasm of endometrium; N30.00 Acute cystitis without hematuria; R53.1 Weakness; R05 Cough
CPT/HCPCS: 71046; 80053; 81001; 85027; 99283; 99284

== ENCOUNTER 2018-08-20 14:03 | Observation (INO) | payer BC ==
[2018-08-20 15:25] LABS: HEMATOCRIT 21.8 % (35.0-47.0); MEAN CORPUSCULAR HGB CONC 29.4 g/dl (32-36); MEAN PLATELET VOLUME 9.1 fl (7.4-10.4); PLATELET COUNT 510 K/uL (130-400); RED BLOOD COUNT 2.37 M/uL (3.80-5.40); WHITE BLOOD COUNT W/O DIFF 8.3 K/uL (4.2-12.2)
[2018-08-20 15:53] LABS: HYPOCHROMIA 2+
[2018-08-20 16:03] LABS: HEMOGLOBIN 6.4 gm/dl (11.6-16.0)
[2018-08-20 16:07] LABS: ABO GROUP A; RH TYPE POSITIVE
[2018-08-20 16:18] LABS: URINE APPEARANCE SL CLOUDY; URINE BILIRUBIN NEGATIVE (NEGATIVE); URINE BLOOD LARGE (NEGATIVE); URINE COLOR YELLOW; URINE GLUCOSE (UA) NEGATIVE (NEGATIVE); URINE KETONE NEGATIVE (NEGATIVE); URINE LEUKOCYTE ESTERASE SMALL (NEGATIVE); URINE NITRITE NEGATIVE (NEGATIVE); URINE PROTEIN NEGATIVE (NEGATIVE); URINE UROBILINOGEN 0.2 E.U./dL (0.20 - 1.00)
[2018-08-20 16:19] LABS: ANTIBODY SCREEN NEGATIVE (NEGATIVE)
[2018-08-20 16:25] LABS: URINE BACTERIA NONE SEEN; URINE EPITHELIAL CELLS 0 - 2 (FEW)
--- NOTE | 2018-08-20 16:35 | Emergency Department Record ---
History of Present Illness - General Chief complaint: Female Urogenital Problem Stated complaint: catheter leaking Time Seen by Provider: 08/20/18 14:46 Source: Patient Mode of Arrival: Ambulatory Limitations: No limitations - History of Present Illness Initial comments: pt is here c/o of her catheter being plugged up. pt has a hx of endometrial ca and had a farias placed recently by dr buitrago. she has had to go to [place] twice for the farias being plugged up. she is scheduled to see dr buitrago in 3 days. she has also been having her hgb. checked frequently and has required transfusions. she has had blood in her farias MD Complaint: Other Onset/Timin -: Days(s) Radiation: Suprapubic Severity: Moderate Quality: Aching, Cramping Consistency: Intermittent Improves with: None Worsens with: None Associated Symptoms: Hematuria - Related Data Allergies Allergy/AdvReac Type Severity Reaction Status Date / Time cefaclor [From Ceclor] Allergy HIVES Verified 08/20/18 14:20 pegfilgrastim [From Neulasta] Allergy bone pain Verified 08/20/18 14:20 penicillin V Allergy HIVES Verified 08/20/18 14:20 sulfamethoxazole Allergy PT UNSURE Verified 08/20/18 14:20 [From Bactrim] OF REACTION trimethoprim [From Bactrim] Allergy PT UNSURE Verified 08/20/18 14:20 OF REACTION aspirin AdvReac PT UNSURE Verified 08/20/18 14:20 OF REACTION codeine AdvReac VOMITING Verified 08/20/18 14:20 doxycycline AdvReac VOMITING Verified 08/20/18 14:20 tioconazole AdvReac ITCHING Verified 08/20/18 14:20 [From Monistat 1 (tioconazole)] picholi oil AdvReac upper Uncoded 08/20/18 14:20 respiratory problems Travel Screening - Travel/Exposure Within Last 30 Days Have you traveled within the last 30 days?: No - Travel/Exposure Within Last Year Have you traveled outside the [place] in the last year?: No - Additonal Travel Details Have you been exposed to anyone with a communicable illness?: No - Travel Symptoms Symptom Screening: None Review of Systems Reviewed: No additional complaints except as noted below Constitutional: Reports: As per HPI, Weakness. Denies: Chills, Fever, Malaise, Night sweats, Weight change Eyes: Reports: As per HPI. Denies: Eye discharge, Eye pain, Photophobia, Vision change ENT: Reports: As per HPI. Denies: Congestion, Dental pain, Ear pain, Epistaxis , Hearing loss, Throat pain Respiratory: Reports: As per HPI. Denies: Cough, Dyspnea, Hemoptysis, Stridor, Wheezes Cardiovascular: Reports: As per HPI. Denies: Arrhythmia, Chest pain, Dyspnea on exertion, Edema, Murmurs, Orthopnea, Palpitations, Paroxysmal nocturnal dyspnea, Rheumatic Fever, Syncope Endocrine: Reports: As per HPI. Denies: Fatigue, Heat or cold intolerance, Polydipsia, Polyuria Gastrointestinal: Reports: As per HPI. Denies: Abdominal pain, Constipation, Diarrhea, Hematemesis, Hematochezia, Melena, Nausea, Vomiting Genitourinary: Reports: As per HPI, Hematuria. Denies: Abnormal menses, Discharge, Dyspareunia, Dysuria, Frequency, Incontinence, Retention, Urgency Musculoskeletal: Reports: As per HPI. Denies: Arthralgia, Back pain, Gout, Joint swelling, Myalgia, Neck pain Skin: Reports: As per HPI. Denies: Bruising, Change in color, Change in hair/ nails, Lesions, Pruritus, Rash Neurological: Reports: As per HPI. Denies: Abnormal gait, Confusion, Headache, Numbness, Paresthesias, Seizure, Tingling, Tremors, Vertigo, Weakness Psychiatric: Reports: As per HPI. Denies: Anxiety, Auditory hallucinations, Depression, Homicidal thoughts, Suicidal thoughts, Visual hallucinations Hematological/Lymphatic: Reports: As per HPI. Denies: Anemia, Blood Clots, Easy bleeding, Easy bruising, Swollen glands Past Medical History - SOCIAL HISTORY Smoking Status: Never smoker Alcohol Use: None Drug Use: None - RESPIRATORY Hx Respiratory Disorders: Yes Hx Bronchitis: Yes Comment:: allergies - CARDIOVASCULAR Hx Cardio Disorders: No - NEURO Hx Neuro Disorders: No - GI Hx GI Disorders: No - Hx Genitourinary Disorders: Yes Hx Kidney Stones: Yes Hx Renal Disease: Yes - ENDOCRINE Hx Endocrine Disorders: Yes Hx Diabetes: Yes ("Pre-diabetic") - MUSCULOSKELETAL Hx Musculoskeletal Disorders: No - PSYCH Hx Psych Problems: Yes Hx Depression: Yes - HEMATOLOGY/ONCOLOGY Hx Hematology/Oncology Disorders: Yes Hx Cancer: Yes (endometrial) Hx Chemotherapy: Yes Hx Radiation Therapy: No Family Medical History Any Significant Family History?: Yes Family Hx Comment (NOT TO BE USED IN PLACE OF ITEMS BELOW): Mother had MS and was "post-polio" Hx Cancer: Father, Mother Physical Exam - General General Appearance: Alert, Oriented x3, Cooperative, Mild distress - Head Head exam: Normal inspection - Eye Eye exam: Normal appearance, PERRL, EOMI Pupils: Normal accommodation - ENT ENT exam: Normal exam, Mucous membranes moist, Normal external ear exam, Normal orophraynx Ear exam: Normal external inspection. negative: External canal tenderness Nasal Exam: Normal inspection. negative: Discharge, Sinus tenderness Mouth exam: Normal external inspection, Tongue normal Teeth exam: Normal inspection. negative: Dental caries Throat exam: Normal inspection. negative: Tonsillar erythema, Tonsillar exudate - Neck Neck exam: Normal inspection, Full ROM. negative: Tenderness - Respiratory Respiratory exam: Normal lung sounds bilaterally. negative: Respiratory distress - Cardiovascular Cardiovascular Exam: Regular rate, Normal rhythm, Normal heart sounds - GI/Abdominal GI/Abdominal exam: Soft, Normal bowel sounds. negative: Tenderness - Rectal Rectal exam: Deferred - exam: Deferred - Extremities Extremities exam: Normal inspection, Full ROM, Normal capillary refill. negative: Tenderness - Back Back exam: Reports: Normal inspection, Full ROM. Denies: Muscle spasm, Rash noted, Tenderness - Neurological Neurological exam: Alert, CN II-XII intact, Normal gait, Oriented X3 - Psychiatric Psychiatric exam: Normal affect, Normal mood - Skin Skin exam: Dry, Intact, Pallor, Warm Course Vital Signs 08/20/18 14:08 Temperature 98.2 F Pulse Rate 91 H Respiratory 18 Rate Blood Pressure 136/83 Pulse Ox 96 Medical Decision Making - Lab Data Result diagrams: 08/20/18 15:05 Lab Results 08/20/18 08/20/18 08/20/18 Range/Units 15:05 16:04 16:16 WBC 8.3 (4.2-12.2) K/uL RBC 2.37 L (3.80-5.40) M/uL Hgb 6.4 L* (11.6-16.0) gm/dl Hct 21.8 L (35.0-47.0) % MCV 92.0 (81-97) fl MCH 27.0 (27-33) pg MCHC 29.4 L (32-36) g/dl RDW 18.0 H (11.5-14.5) % Plt Count 510 H (130-400) K/uL MPV 9.1 (7.4-10.4) fl Neutrophils % 80.0 (47-80) % Band Neutrophils % 0.0 (0-5) % Eosinophils % Not Reportable Basophils % Not Reportable Lymphocytes 6.0 L (16-45) % Monocytes 13.0 H (0-9) % Basophils 0.0 (0-6) % Hypochromasia 2+ Eosinophil Count 1.0 (0-6) % Urine Color Yellow Urine Appearance Sl cloudy Urine pH 7.0 (5.0-8.0) Ur Specific [place] <= 1.005 (1.002-1.030) Urine Protein Negative (NEGATIVE) Urine Glucose (UA) Negative (NEGATIVE) Urine Ketones Negative (NEGATIVE) Urine Blood Large H (NEGATIVE) Urine Nitrite Negative (NEGATIVE) Urine Bilirubin Negative (NEGATIVE) Urine Urobilinogen 0.2 (0.20 - 1.00) E.U./dL Ur Leukocyte Esterase Small H (NEGATIVE) Urine RBC 3 - 6 (NONE SEEN) Urine WBC 3 - 5 (0-2/hpf) Ur Epithelial Cells 0 - 2 (FEW) Urine Bacteria None seen ABO Group A Rh Factor Positive Antibody Screen Negative (NEGATIVE) Disposition Disposition: Admit Clinical Impression: Anemia Qualifiers: Anemia type: iron deficiency Iron deficiency anemia type: chronic blood loss Qualified Code(s): D50.0 - Iron deficiency anemia secondary to blood loss ( chronic) Hematuria Qualifiers: Hematuria type: unspecified type Qualified Code(s): R31.9 - Hematuria, unspecified Disposition: Still a Patient at [facility] Decision to Admit: Admit from ER Decision to Admit Date: 08/20/18 Decision to Admit Time: 16:39 Quality - Quality Measures Quality Measures: N/A - Blood Pressure Screening Does Patient Have Any of the Following: No Blood Pressure Classification: Pre-Hypertensive BP Reading Systolic Measurement: 136 Diastolic Measurement: 83 Screening for High Blood Pressure: < Pre-Hypertensive BP, F/U Documented > [ G8950] Pre-Hypertensive Follow-up Interventions: Follow-up with rescreen every year.
[2018-08-20] MEDS ORDERED: LORAZEPAM 0.5 MG TABLET PO PRN (17:14)
[2018-08-20 17:32] LABS: IMMED. SPIN CROSSMATCH COMPATIBLE
[2018-08-20 17:46] LABS: IMMED. SPIN CROSSMATCH COMPATIBLE
[2018-08-20] MEDS: SERTRALINE HCL 50 MG TABLET PO SCH (18:41)
[2018-08-20] MEDS: ACETAMINOPHEN 500 MG TABLET PO PRN (19:02)
[2018-08-20] MEDS ORDERED: FUROSEMIDE IV 20MG/2ML VIAL IVP ONE (20:00)
[2018-08-21] MEDS: ONDANSETRON 4 MG ODT TABLET SL PRN ×2 (01:42→16:11)
[2018-08-21 02:03] LABS: HEMATOCRIT 28.2 % (35.0-47.0); HEMOGLOBIN 8.6 gm/dl (11.6-16.0)
[2018-08-21] MEDS: ACETAMINOPHEN 500 MG TABLET PO PRN ×2 (05:46→14:03)
--- NOTE | 2018-08-21 10:19 | History & Physical ---
History of Present Illness - Date of Service Date of Service for History & Physical: 08/21/18 - History of Present Illness Admitting Diagnosis: acute anemia, hematuria, endometrial ca History of Present Illness: 68 f female presents for occluded farias cath. Pt has endometrial CA and most recently having bladder issues for the past month. Infection and bleeding, clotting. Pt had catheter placed 08/02/18 that eventually occluded with clots. Went through [facility] ER, had farias flushed, triple lumen placed, 2 units PRBCs given, pt d/c'd home. Last night pt went to stand up, had profuse leaking around farias and blood. 08/20/18 Pt to [facility] ER for hematuria, clotting r/t to hematuria and weakness. Farias was irrigated and was able to become patent once again. Pt was noted to be anemic. WBC 8.3, Hgb 6.4, Hct 21.8, Plt 510 UA positive for blood and trace leuk. 2 units PRBCs ordered from ER, with repeat H/H 08/21/18 pt resting comfortably in bed, reports feeling better since transfusion. Hematuria continues but no clots noted and nursing staff did not notify provider for any need to irrigate last night. Pt states she would like to be d/c'd as she has a urology appt wed and will follow up outpt. Pt has limited support group and has 3 dogs home alone since admission last night. [employer] contacted urology and they will be able to see her this AM. D/ C planning started, pt contacted and POC changed. Pt contacted about POC and reported that she has assistance with her dogs for home care and does not want d /c. Pt is reporting generalized weakness and dizziness at time of critical care unit nurse visit. pt is now requesting transfer to [facility]. Per CC, after speaking with urology, the appt was for ER follow up for farias placement and inability to urinate. They were not aware pt was having bleeding significant enough to need several transfusion. Pt has no h/o bladder cancer but current situation is suggestive of possible metastasis. Pt oncology is also at [facility]. No oncology services at this facility and no urology for several days. [facility] to be contacted. Dr Kennedy reports he wants pt admitted [facility] for cystoscope, hospitalist to admit and Dr Kennedy to consult. Awaiting hospitalist call back. PCP Porfirio Willams (urology) Marcia (oncology) Travel Screening - Travel/Exposure Within Last 30 Days Have you traveled within the last 30 days?: No - Travel/Exposure Within Last Year Have you traveled outside the [place] in the last year?: No - Additonal Travel Details Have you been exposed to anyone with a communicable illness?: No - Travel Symptoms Symptom Screening: Weakness, Fatigue Review of Systems Constitutional: Reports: As per HPI, Weakness. Denies: Chills, Fever, Malaise, Night sweats, Weight change Eyes: Reports: As per HPI. Denies: Eye discharge, Eye pain, Photophobia, Vision change ENT: Reports: As per HPI. Denies: Congestion, Dental pain, Ear pain, Epistaxis , Hearing loss, Throat pain Respiratory: Reports: As per HPI. Denies: Cough, Dyspnea, Hemoptysis, Stridor, Wheezes Cardiovascular: Reports: As per HPI. Denies: Arrhythmia, Chest pain, Dyspnea on exertion, Edema, Murmurs, Orthopnea, Palpitations, Paroxysmal nocturnal dyspnea, Rheumatic Fever, Syncope Endocrine: Reports: As per HPI. Denies: Fatigue, Heat or cold intolerance, Polydipsia, Polyuria Gastrointestinal: Reports: As per HPI. Denies: Abdominal pain, Constipation, Diarrhea, Hematemesis, Hematochezia, Melena, Nausea, Vomiting Genitourinary: Reports: As per HPI, Hematuria. Denies: Abnormal menses, Discharge, Dyspareunia, Dysuria, Frequency, Incontinence, Retention (farias placed r/t this), Urgency Musculoskeletal: Reports: As per HPI. Denies: Arthralgia, Back pain, Gout, Joint swelling, Myalgia, Neck pain Skin: Reports: As per HPI. Denies: Bruising, Change in color, Change in hair/ nails, Lesions, Pruritus, Rash Neurological: Reports: As per HPI. Denies: Abnormal gait, Confusion, Headache, Numbness, Paresthesias, Seizure, Tingling, Tremors, Vertigo, Weakness Psychiatric: Reports: As per HPI. Denies: Anxiety, Auditory hallucinations, Depression, Homicidal thoughts, Suicidal thoughts, Visual hallucinations Hematological/Lymphatic: Reports: As per HPI. Denies: Anemia, Blood Clots, Easy bleeding, Easy bruising, Swollen glands Past Medical History - SOCIAL HISTORY Smoking Status: Never smoker - RESPIRATORY Hx Respiratory Disorders: Yes Hx Bronchitis: Yes Comment:: allergies - CARDIOVASCULAR Hx Cardio Disorders: No - NEURO Hx Neuro Disorders: No - GI Hx GI Disorders: No - Hx Genitourinary Disorders: Yes Hx Kidney Stones: Yes Hx Renal Disease: Yes - ENDOCRINE Hx Endocrine Disorders: Yes Hx Diabetes: Yes ("Pre-diabetic") - MUSCULOSKELETAL Hx Musculoskeletal Disorders: No - PSYCH Hx Psych Problems: Yes Hx Depression: Yes - HEMATOLOGY/ONCOLOGY Hx Hematology/Oncology Disorders: Yes Hx Cancer: Yes (endometrial) Hx Chemotherapy: Yes Hx Radiation Therapy: No Family Medical History Any Significant Family History?: Yes Family Hx Comment (NOT TO BE USED IN PLACE OF ITEMS BELOW): Mother had MS and was "post-polio" Hx Cancer: Father, Mother H&P Meds/Allergies - Allergies Allergies: Allergies Allergy/AdvReac Type Severity Reaction Status Date / Time cefaclor [From Ceclor] Allergy HIVES Verified 08/20/18 14:20 pegfilgrastim [From Neulasta] Allergy bone pain Verified 08/20/18 14:20 penicillin V Allergy HIVES Verified 08/20/18 14:20 sulfamethoxazole Allergy PT UNSURE Verified 08/20/18 14:20 [From Bactrim] OF REACTION trimethoprim [From Bactrim] Allergy PT UNSURE Verified 08/20/18 14:20 OF REACTION aspirin AdvReac PT UNSURE Verified 08/20/18 14:20 OF REACTION codeine AdvReac VOMITING Verified 08/20/18 14:20 doxycycline AdvReac VOMITING Verified 08/20/18 14:20 tioconazole AdvReac ITCHING Verified 08/20/18 14:20 [From Monistat 1 (tioconazole)] picholi oil AdvReac upper Uncoded 08/20/18 14:20 respiratory problems - Active Medications Active Medications: Current Medications Acetaminophen (Tylenol 500mg Tab) 1,000 mg PO Q6H PRN PRN Reason: PAIN - MILD(1-4)/FEVER Last Admin: 08/21/18 05:46 Dose: 1,000 mg Lorazepam (Ativan) 0.5 mg PO Q6H PRN PRN Reason: anxiety, nausea Ondansetron HCl (Zofran Odt) 8 mg SL Q8H PRN PRN Reason: NAUSEA Last Admin: 12/03/18 01:42 Dose: 8 mg Sertraline HCl (Zoloft) 50 mg PO QPM JYOTI Last Admin: 08/20/18 18:41 Dose: Not Given Physical Exam - Vital Signs Vital Signs: Vital Signs - Last 24 Hrs Temp Pulse Pulse Resp BP BP Pulse Ox 08/21/18 08:39 20 08/20/18 21:00 18 08/20/18 17:50 18 08/20/18 17:05 98.1 F 87 18 155/71 99 08/20/18 14:08 98.2 F 91 H 18 136/83 96 - General General Appearance: Alert, Oriented x3, Cooperative, No acute distress Limitations: No limitations - Head Head exam: Normal inspection - Eye Eye exam: Normal appearance, PERRL, EOMI Pupils: Normal accommodation - ENT ENT exam: Normal exam, Mucous membranes moist, Normal external ear exam, Normal orophraynx Ear exam: Normal external inspection. negative: External canal tenderness Nasal Exam: Normal inspection. negative: Discharge, Sinus tenderness Mouth exam: Normal external inspection, Tongue normal Teeth exam: Normal inspection. negative: Dental caries Throat exam: Normal inspection. negative: Tonsillar erythema, Tonsillar exudate - Neck Neck exam: Normal inspection, Full ROM. negative: Tenderness - Respiratory Respiratory exam: Normal lung sounds bilaterally. negative: Respiratory distress - Cardiovascular Cardiovascular Exam: Regular rate, Normal rhythm, Normal heart sounds Peripheral Pulses: 3+: Radial (R), Radial (L), Dorsalis Pedis (R), Dorsalis Pedis (L) - GI/Abdominal GI/Abdominal exam: Soft, Hypoactive bowel sounds. negative: Tenderness - Rectal Rectal exam: Deferred - exam: Deferred - Extremities Extremities exam: Normal inspection, Full ROM, Normal capillary refill. negative: Tenderness - Back Back exam: Reports: Normal inspection, Full ROM. Denies: Muscle spasm, Rash noted, Tenderness - Neurological Neurological exam: Alert, CN II-XII intact, Normal gait, Oriented X3 - Psychiatric Psychiatric exam: Normal affect, Normal mood - Skin Skin exam: Dry, Intact, Pallor, Warm Results - Labs Result Diagrams: 08/21/18 01:55 08/21/18 11:32 Labs Last 24 Hours: Laboratory Results - last 24 hr 08/20/18 08/20/18 08/20/18 15:05 16:04 16:16 WBC 8.3 RBC 2.37 L Hgb 6.4 L* Hct 21.8 L MCV 92.0 MCH 27.0 MCHC 29.4 L RDW 18.0 H Plt Count 510 H MPV 9.1 Neutrophils % 80.0 Band Neutrophils % 0.0 Eosinophils % Not Reportable Basophils % Not Reportable Lymphocytes 6.0 L Monocytes 13.0 H Basophils 0.0 Hypochromasia 2+ Eosinophil Count 1.0 Urine Color Yellow Urine Appearance Sl cloudy Urine pH 7.0 Ur Specific [place] <= 1.005 Urine Protein Negative Urine Glucose (UA) Negative Urine Ketones Negative Urine Blood Large H Urine Nitrite Negative Urine Bilirubin Negative Urine Urobilinogen 0.2 Ur Leukocyte Esterase Small H Urine RBC 3 - 6 Urine WBC 3 - 5 Ur Epithelial Cells 0 - 2 Urine Bacteria None seen ABO Group A Rh Factor Positive Antibody Screen Negative Crossmatch 08/20/18 08/20/18 08/21/18 17:14 17:37 01:55 WBC RBC Hgb 8.6 L Hct 28.2 L MCV MCH MCHC RDW Plt Count MPV Neutrophils % Band Neutrophils % Eosinophils % Basophils % Lymphocytes Monocytes Basophils Hypochromasia Eosinophil Count Urine Color Urine Appearance Urine pH Ur Specific [place] Urine Protein Urine Glucose (UA) Urine Ketones Urine Blood Urine Nitrite Urine Bilirubin Urine Urobilinogen Ur Leukocyte Esterase Urine RBC Urine WBC Ur Epithelial Cells Urine Bacteria ABO Group Rh Factor Antibody Screen Crossmatch Yes Yes - Imaging and Cardiology CT scan - pelvis Status: Report reviewed Additional Comments: 08/02/[address], shows 3cm mass in bladder. Pt is having active bleeding from bladder. VTE H&P Assessment - Risk for VTE Risk for VTE: Yes Risk Level: High Risk Assessment Date: 08/21/18 Risk Assessment Time: 10:20 VTE Orders Placed or Will Be Placed: No VTE Reason for No Prophylaxis: Contraindicated (active bleeding) Plan - Detailed Diagnosis and Plan (1) Anemia Current Visit: Yes Status: Acute Qualifiers: Anemia type: iron deficiency Iron deficiency anemia type: chronic blood loss Qualified Code(s): D50.0 - Iron deficiency anemia secondary to blood loss (chronic) Base Code: D64.9 - ANEMIA, UNSPECIFIED Comment: 08/21/18 - Hgb in ER 6.4, 2 units PRBC given, repeat Hcg 8.6 (2) Hematuria Current Visit: Yes Status: Acute Qualifiers: Hematuria type: unspecified type Qualified Code(s): R31.9 - Hematuria, unspecified Base Code: R31.9 - HEMATURIA, UNSPECIFIED Comment: 08/21/18 -pt had farias placed 08/02/18, tripple lumen irrigating farias placed 08/04/18 when 2 units PRBC transfused for hematuria -anemia this admission, 2 units PRBCs given -Hbg 6.4 to 8.6 (3) UTI (urinary tract infection) Current Visit: No Status: Acute Qualifiers: Urinary tract infection type: acute cystitis Hematuria presence: without hematuria Qualified Code(s): N30.00 - Acute cystitis without hematuria Base Code: N39.0 - URINARY TRACT INFECTION, SITE NOT SPECIFIED Comment: -trace leuk noted UA in ER -CMP pending for RFTs to start abx, Levaquin 500mg qd (4) Bladder mass Current Visit: Yes Status: Acute Base Code: N32.89 - OTHER SPECIFIED DISORDERS OF BLADDER Comment: 08/21/18 -pt has continued hematuria that wax/wane -seen [facility] 08/02/18 shows 3cm mass -Oncology Paulo Amad -urology [facility] (has not seen since 12/2017) (5) DVT prophylaxis Current Visit: Yes Status: Acute Base Code: [id number] - Comment: 08/21/18 -high risk for DVT r/t CA but pt is actively bleeding with 3 cm mass noted on the bladder 08/02/18 CT from [facility] -no lovenox this admission
[2018-08-21] MEDS ORDERED: LEVOFLOXACIN 500 MG TABLET PO ONE (10:27)
[2018-08-21 13:12] LABS: BLOOD UREA NITROGEN 13 mg/dL (8-23); CREATININE 0.8 mg/dL (0.5-0.9); EST GLOMERULAR FILTRATION RATE > 60 mL/min; TOTAL PROTEIN 7.1 g/dL (6.6-8.7)
[2018-08-21 13:14] LABS: GLUCOSE,RANDOM 112 mg/dL (74-109)
[2018-08-21 13:17] LABS: ALB/GLOB RATIO 0.7 (1.1-1.8); ALKALINE PHOSPHATASE 136 U/L (35-104); ALT/SGPT 72 U/L (<33); AST/SGOT 56 U/L (10.0-35.0)
--- NOTE | 2018-08-21 13:42 | Discharge Note ---
VTE H&P Assessment - Risk for VTE Risk for VTE: Yes Risk Level: High Risk Assessment Date: 08/21/18 Risk Assessment Time: 10:20 VTE Orders Placed or Will Be Placed: No VTE Reason for No Prophylaxis: Contraindicated (active bleeding) Discharge Medications - Discharge Medications Home Medications: Ambulatory Orders Cholecalciferol (Vitamin D3) [Vitamin D3] 2,000 unit PO DAILY 11/27/17 [Last Taken 11/27/17] Sertraline HCl [Zoloft] 50 mg PO QPM 11/27/17 [Last Taken 11/27/17] Acetaminophen [Tylenol Extra Strength] 1 - 2 tab PO Q6H PRN 06/17/18 [Last Taken 06/17/18] Lorazepam [Ativan] 1 - 2 tab PO Q6H PRN 06/17/18 [Last Taken Unknown] Ondansetron HCl [Zofran] 8 mg PO Q8HR PRN 06/17/18 [Last Taken Unknown] Prochlorperazine Maleate [Compazine] 10 mg PO DAILY PRN 06/17/18 [Last Taken Unknown] Discharge Note - Date Date of Discharge Note: 08/21/18 Disposition: Acute Care Hospital Transfer Condition: (3) Guarded Additional Instructions: Dr Thompson accepting pt transfer. Pt to see oncology and urology for continued hematuria req freq blood transfusions, farias irrigation from clots, and bladder mass noted 08/09/18 CT from [facility]. Awaiting bed assignment. Forms: Patient Portal Access
[2018-08-21] MEDS: SERTRALINE HCL 50 MG TABLET PO SCH (16:11)
== END 2018-08-21 17:45 | disposition short-term general hospital (02) ==
LOC: ER 14:03 → MEDSURG 16:58
PROVIDERS: ADMIT Internal Medicine; ATTEND Internal Medicine
DX: D50.0 Iron deficiency anemia secondary to blood loss (chronic) (principal); R31.9 Hematuria, unspecified; C54.1 Malignant neoplasm of endometrium; Z87.442 Personal history of urinary calculi; N39.0 Urinary tract infection, site not specified; C67.9 Malignant neoplasm of bladder, unspecified
CPT/HCPCS: 36430; 80053; 81001; 85014; 85018; 85027; 86850; 86900; 86901; 96374; 99220; 99285; J1940

== ENCOUNTER 2018-08-30 20:27 | Emergency (ER) | payer BC ==
[2018-08-30] MEDS ORDERED: TRAMADOL HCL 50 MG TABLET PO ONE ×2 (20:43→22:14)
--- NOTE | 2018-08-30 20:51 | Emergency Department Record ---
History of Present Illness - General Chief complaint: Pain Stated complaint: leg pain Time Seen by Provider: 08/30/18 20:38 Source: Patient Mode of Arrival: EMS Limitations: No limitations - History of Present Illness Initial comments: The patient is here due to R leg pain for at least a week. She has a hx of stage 4 Endometrial CA that she has been getting treated at [facility]. She just was discharged home last evening after a 10 day stay there and did have a minor fall while transferring into her home. During the admission she had had R femur pain which was being treated with various medicines but there was discussion of treating her with Tramadol if her present medicines were not doing the trick. The patient has had a talk with her Oncologist this AM about having Hospice evaluate her and they were supposed to come to the house tonight. That was decided due to the treatment not working against the CA. Since the pain was worse her Oncologist told her to come to the ER for pain control. She denies any fever, or new illness. MD Complaint: Extremity pain Onset/Timin -: Week(s) Location: Right, Thigh History of Same: No Radiation: Distal Severity scale (1-10): 9 Quality: Aching Consistency: Constant Worsens with: Rest, Walking, Weight bearing Associated Symptoms: Denies other symptoms - Related Data Home Medications Medication Instructions Recorded Confirmed Last Taken Levofloxacin [Levaquin] 500 mg PO DAILY 08/30/18 08/30/18 08/30/18 Nystatin 5 ml PO TID 08/30/18 08/30/18 08/30/18 Previous Rx's Medication Instructions Recorded Tramadol HCl 50 mg PO Q8H #15 tab 08/30/18 Allergies Allergy/AdvReac Type Severity Reaction Status Date / Time cefaclor [From Ceclor] Allergy HIVES Verified 08/20/18 14:20 pegfilgrastim [From Neulasta] Allergy bone pain Verified 08/20/18 14:20 penicillin V Allergy HIVES Verified 08/20/18 14:20 sulfamethoxazole Allergy PT UNSURE Verified 08/20/18 14:20 [From Bactrim] OF REACTION trimethoprim [From Bactrim] Allergy PT UNSURE Verified 08/20/18 14:20 OF REACTION aspirin AdvReac PT UNSURE Verified 08/20/18 14:20 OF REACTION codeine AdvReac VOMITING Verified 08/20/18 14:20 doxycycline AdvReac VOMITING Verified 08/20/18 14:20 tioconazole AdvReac ITCHING Verified 08/20/18 14:20 [From Monistat 1 (tioconazole)] picholi oil AdvReac upper Uncoded 08/20/18 14:20 respiratory problems Travel Screening - Travel/Exposure Within Last 30 Days Have you traveled within the last 30 days?: No - Travel Symptoms Symptom Screening: None Review of Systems Constitutional: Denies: Chills, Fever Eyes: Denies: Eye discharge ENT: Denies: Congestion Respiratory: Denies: Cough, Dyspnea Past Medical History - SOCIAL HISTORY Smoking Status: Never smoker Alcohol Use: None Drug Use: None - RESPIRATORY Hx Respiratory Disorders: Yes Hx Bronchitis: Yes Comment:: allergies - CARDIOVASCULAR Hx Cardio Disorders: No - NEURO Hx Neuro Disorders: No - GI Hx GI Disorders: No - Hx Genitourinary Disorders: Yes Hx Kidney Stones: Yes Hx Renal Disease: Yes - ENDOCRINE Hx Endocrine Disorders: Yes Hx Diabetes: Yes ("Pre-diabetic") - MUSCULOSKELETAL Hx Musculoskeletal Disorders: No - PSYCH Hx Psych Problems: Yes Hx Depression: Yes - HEMATOLOGY/ONCOLOGY Hx Hematology/Oncology Disorders: Yes Hx Cancer: Yes (endometrial) Hx Chemotherapy: Yes Hx Radiation Therapy: No Family Medical History Any Significant Family History?: Yes Family Hx Comment (NOT TO BE USED IN PLACE OF ITEMS BELOW): Mother had MS and was "post-polio" Hx Cancer: Father, Mother Physical Exam - General General Appearance: Alert, Cooperative, No acute distress, Other (The patient does appear chronically ill and slightly pale.) - Head Head exam: Atraumatic, Normocephalic - Eye Eye exam: Normal appearance, PERRL - Neck Neck exam: Normal inspection, Full ROM. negative: Tenderness - Respiratory Respiratory exam: Normal lung sounds bilaterally. negative: Respiratory distress - Cardiovascular Cardiovascular Exam: Regular rate, Normal rhythm, Normal heart sounds - GI/Abdominal GI/Abdominal exam: Soft, Normal bowel sounds. negative: Tenderness - Extremities Extremities exam: Normal inspection, Tenderness (There is diffuse R femur tenderness.), Other (The R leg is NVI.) Course Vital Signs 08/30/18 20:31 Temperature 97.7 F Pulse Rate 80 Respiratory 24 Rate Blood Pressure 142/67 Pulse Ox 98 - Reevaluation(s) Reevaluation #1: The patient is doing better at this time. Her R leg pain is much improved. I did discuss the lab results and the patient with the Motion Picture [employer]ator Oncologist at [facility] who was Dr. Jackson. He did recommend that the patient go home to be evaluated by Hospice per the plan with the patient's regular Oncologist Dr. Jaqueline Coates. I did discuss the issues at length with the patient and family regarding her condition and weakness. I discussed that if she would like to be evaluated further we would need to do further blood work, cultures, xrays of the chest and a CT of the abdomen. The patient chose no further workup and to go home on Hospice. 08/30/18 22:09 Medical Decision Making - Data Complexity MDM Data: Labs Ordered and/or Reviewed - Lab Data Result diagrams: 08/30/18 20:20 08/30/18 20:20 Disposition Disposition: Discharge Clinical Impression: Cancer-related pain Disposition: Home, Self-Care Condition: (2) Stable Instructions: Pharmacological Management of Cancer Pain (ED) Additional Instructions: PLease continue the regular medicines and please use the Tramadol as directed. Please see your Oncologist as planned and return to the ER for any worsening issues. Prescriptions: Tramadol HCl 50 mg PO Q8H #15 tab Forms: Patient Portal Access Time of Disposition: 22:14 Quality - Quality Measures Quality Measures: N/A - Blood Pressure Screening View Details: Yes Does Patient Have Any of the Following: No Blood Pressure Classification: Hypertensive Reading Systolic Measurement: 142 Diastolic Measurement: 67 Screening for High Blood Pressure: < First Hypertensive BP, F/U Documented > [ [id number]] First Hypertensive Follow-up Interventions: Referral to alternative/primary care provider.
[2018-08-30 20:52] LABS: BASO % 0.1 % (0-6); EOS % 0.1 % (0-6); HEMATOCRIT 27.8 % (35.0-47.0); HEMOGLOBIN 8.7 gm/dl (11.6-16.0); LYMPH % 6.2 % (16-45); MEAN CELL VOLUME 86.3 fl (81-97); MEAN CORPUSCULAR HGB CONC 31.3 g/dl (32-36); MONO % 7.9 % (0-9); PLATELET COUNT 551 K/uL (130-400); RED BLOOD COUNT 3.22 M/uL (3.80-5.40); RED CELL DISTRIBUTION WIDTH 17.5 % (11.5-14.5); WHITE BLOOD COUNT W/O DIFF 17.1 K/uL (4.2-12.2)
[2018-08-30] MEDS ORDERED: ONDANSETRON HCL IV 4 MG/2 ML VIAL IVP ONE (20:53)
[2018-08-30 21:00] LABS: CREATININE 1.2 mg/dL (0.5-0.9)
[2018-08-30 21:27] LABS: ANISOCYTOSIS 1+; PLATELET ESTIMATE INCREASED (NORMAL)
[2018-08-30] MEDS ORDERED: 0.9 % SODIUM CHLORIDE 1,000 ML BAG IV ONE (21:35)
--- NOTE | 2018-09-01 10:47 | RADIOLOGY REPORT ---
EXAM: RIGHT FEMUR HISTORY: PAIN IN RIGHT THIGH, NO HISTORY OF INJURY PROVIDED. TECHNIQUE: AP and lateral views of the right femur were obtained. Comparison: None. FINDINGS: Diffuse osteopenia is seen suggesting osteoporosis. No definite fracture or destructive lesion seen, and no dislocation at the knee or hip evident. Surgical clips medial to the right hip. IMPRESSION: 1. DIFFUSE OSTEOPENIA SUGGESTING OSTEOPOROSIS. 2. POSTOP CHANGES MEDIAL TO THE RIGHT HIP. 3. NO DEFINITE FRACTURE OR DESTRUCTIVE LESION IDENTIFIED IN THE RIGHT FEMUR. JOB NUMBER: [id number] [facility]
== END 2018-08-30 22:29 | disposition home or self-care (01) ==
LOC: ER 20:27
DX: G89.3 Neoplasm related pain (acute) (chronic) (principal); C54.1 Malignant neoplasm of endometrium; M79.651 Pain in right thigh
CPT/HCPCS: 99284 ×2; 96374; 80048; 85027; 73552; J2405